=== PATIENT | male | born 1940 | race Caucasian/White ===

== ENCOUNTER 2016-10-01 01:43 | Emergency (ER) | payer MEDICARE, OTHER ==
[~2016-10-01] VITALS: Ht 177.8 cm; Wt 118.0 kg
[~2016-10-01 01:43] MED LIST: BRIM5DRO3 EACHEYE; DORZ10DR7 EACHEYE; INSU100C5 SQ-INSULIN; INSU100I28 SQ; LATA2.5D3 EACHEYE; MYCO360T PO; OMEP-110 PO; TACR1CAP4 PO; TAMS0.4C2 PO; VALS80TA3 PO
[2016-10-01] MEDS ORDERED: SODIUM CHLORIDE 0.9% 1,000 ML IV ONE (02:08)
[2016-10-01] MEDS ORDERED: POTA10TA11 PO (02:14)
[2016-10-01] MEDS ORDERED: INSU200I SQ (02:14)
[2016-10-01] MEDS ORDERED: BENZ1TAB61 PO (02:14)
[2016-10-01] MEDS ORDERED: PANT40TA5 PO (02:14)
[2016-10-01] MEDS ORDERED: MYCO500T3 PO (02:14)
[2016-10-01] MEDS ORDERED: DORZ10DR21 OP (02:14)
[2016-10-01] MEDS ORDERED: FURO20TA3 PO (02:14)
[2016-10-01] MEDS ORDERED: VALS160T3 PO (02:14)
[2016-10-01] MEDS ORDERED: INSU100I28 SQ (02:19)
[2016-10-01] MEDS ORDERED: SODIUM CHLORIDE FLUSH 10ML SYR IVF ONE (02:30)
[2016-10-01] MEDS ORDERED: ONDANSETRON 2MG/ML, 2ML IVPush ONE (02:30)
[2016-10-01] MEDS ORDERED: MORPHINE SULFATE 4 MG/ML, 1ML IVPush PRN (02:30)
[2016-10-01 02:55] LABS: ASPARTATE AMINO TRANSFERASE 11 U/L (15-37); BLOOD UREA NITROGEN 22 mg/dL (7-18)
[2016-10-01 03:01] LABS: IS PT STATUS REG ER OR PRE ER? YES
[2016-10-01 04:15] VITALS: BP 148/86
== END 2016-10-01 04:17 | disposition home or self-care (01) ==
LOC: ED 02:25
DX: R10.11 Right upper quadrant pain (principal); I10 Essential (primary) hypertension; E11.40 Type 2 diabetes mellitus with diabetic neuropathy, unspecified; Z99.2 Dependence on renal dialysis; Z94.0 Kidney transplant status; Z91.013 Allergy to seafood
CPT/HCPCS: 36415; 71010; 76700; 80053; 81003; 82962; 83690; 84484; 85025; 93005; 99285

== ENCOUNTER → 2018-02-20 | Outpatient (CLI) | payer MEDICARE, OTHER ==
[~2018-02-20] MED LIST changes: +BENZ1TAB61 PO; +DORZ10DR21 OP; +FURO20TA3 PO; +INSU200I SQ; +MYCO500T3 PO; +PANT40TA5 PO; +POTA10TA11 PO; +VALS160T3 PO
[2018-02-20 11:52] LABS: BASOPHILS # (AUTO) 0.04 x10^3/uL (0-0.1); BASOPHILS % (AUTO) 0 % (0-1); EOSINOPHILS # (AUTO) 0.17 x10^3/uL (0-0.4); EOSINOPHILS % (AUTO) 2 % (1-7); LYMPHOCYTES # (AUTO) 1.52 x10^3/uL (1-3.4); LYMPHOCYTES % (AUTO) 13 % (22-44); MD NO; MEAN CORPUSCULAR HEMOGLOBIN 29.9 pg (27.5-34.5); MEAN CORPUSCULAR HGB CONC 33.4 g/dL (33.2-36.2); MEAN CORPUSCULAR VOLUME 89.4 fL (81-97); MEAN PLATELET VOLUME 7.7 fL (7.4-10.4); MONOCYTES # (AUTO) 0.67 x10^3/uL (0.2-0.8); MONOCYTES % (AUTO) 6 % (2-9); NEUTROPHILS # (AUTO) 9.42 x10^3/uL (1.8-6.8); NEUTROPHILS % (AUTO) 80 % (42-75); PLATELET COUNT 249 x10^3/uL (130-400); RED BLOOD COUNT 4.67 x10^6/uL (4.38-5.82); RED CELL DISTRIBUTION WIDTH 15.3 % (9.4-14.8)
[2018-02-20 12:03] LABS: MICROSCOPIC NOT IND
[2018-02-20 12:08] LABS: ALANINE AMINOTRANSFERASE 24 U/L (12-78); ALBUMIN 3.9 g/dL (3.4-5.0); ANION GAP 8 mmol/L (5-15); CALCIUM 8.2 mg/dL (8.5-10.1); CHLORIDE 106 mmol/L (98-107); CREATININE 1.22 mg/dL (0.7-1.3)
[2018-02-20 12:09] LABS: CULTURE INDICATED? NO
[2018-02-20 12:19] LABS: ALKALINE PHOSPHATASE 93 U/L (45-117); BILIRUBIN,TOTAL 0.3 mg/dL (0.2-1.0); FREE T4 (FREE THYROXINE) 1.49 ng/dL (0.76-1.46); TOTAL PROTEIN 7.5 g/dL (6.4-8.2)
[2018-02-20 13:00] LABS: HEMOGLOBIN A1C 6.6 % (4.2-6.3)
[2018-02-22 17:27] LABS: CLOSTRIDIUM DIFFICILE ANTIGEN NEGATIVE; CLOSTRIDIUM DIFFICILE TOXIN NEGATIVE (Negative)
== END | disposition home or self-care (01) ==
LOC: LAB 11:17
PROVIDERS: ATTEND Internal Medicine
DX: E11.22 Type 2 diabetes mellitus with diabetic chronic kidney disease (principal); I12.9 Hypertensive chronic kidney disease with stage 1 through stage 4 chronic kidney disease, or unspecified chronic kidney disease; N18.9 Chronic kidney disease, unspecified; R19.7 Diarrhea, unspecified; R53.83 Other fatigue; Z94.0 Kidney transplant status
CPT/HCPCS: 36415; 80053; 80197; 81003; 83036; 84439; 84443; 85025; 87046; 87324; 89055

== ENCOUNTER 2018-10-04 08:29 | Outpatient (CLI) | payer MEDICARE, OTHER | END 2018-10-04 23:59 | disposition home or self-care (01) | LOC: CFH 08:29 | PROVIDERS: ATTEND Internal Medicine Cardiovascular Disease | DX: I10 Essential (primary) hypertension (principal); R60.9 Edema, unspecified; R07.9 Chest pain, unspecified | CPT/HCPCS: 78452; 93017; A9502; J2785 ==